=== PATIENT | female | born 1995 | race Caucasian/White ===

== ENCOUNTER 2024-04-24 05:21 | Outpatient (CLI) | payer OTHER, SELFPAY ==
[2024-04-24] VITALS (8 sets, daily range): BP systolic 128–146; BP diastolic 73–97; PULSE 76–121; RESP 16; TEMP 36.5; O2SAT 94–98; BMI 30.7
[2024-04-24 06:25] LABS: Color, Urine Yellow (Yellow); Glucose, Dipstick Normal (Normal); Ketone-Dipstick Negative (Negative); Leukocyte Esterase-Dipstick 25 /ul (Negative); Nitrite-Dipstick Negative (Negative); Occult Blood-Urine Negative /ul (Negative); Protein-Dipstick Negative (Negative); Urine Bilirubin Dipstick Negative (Negative); Urine Clarity Sl. Cloudy (Clear); Urine Urobilinogen Normal (Normal)
--- NOTE | 2024-04-24 14:52 | OB.TRI.NOTE ---
HPI - General General Date of Admission: 04/24/24 Date of Service: 04/24/24 Chief Complaint: abdominal pain and DFM HPI Narrative JUANA MOSS, is a 29 F who presents with abdominal pain and DFM. No vb, lof. PFSH PFSH Home Medications ?Medication ?Instructions ?Recorded ?Last Taken ?Type enoxaparin 40 mg/0.4 mL 40 mg subcut DAILY 04/24/24 04/23/24 History subcutaneous syringe (Lovenox) vit no.95-ferrous 1 tab PO DAILY 04/24/24 04/23/24 History fumarate 28 mg-folic acid 800 mcg tablet () Allergy/AdvReac Type Severity Reaction Status Date / Time No Known Allergies Allergy Verified 04/24/24 05:53 NST FHR Rate Baby A Baseline: 145 Variability:: Moderate Accelerations:: 15 x 15 Decelerations:: None NST Reactive:: Yes FHR Category:: Category I Uterine Activity:: none Assessment & Plan (1) Decreased movement: PLAN: NST reactive. D/c home. (2) 30 weeks gestation of :
== END 2024-04-24 07:10 | disposition home or self-care (01) ==
LOC: WPOUT 05:31 → WP 05:31
PROVIDERS: Referring Provider Obstetrics & Gynecology; Visit Provider Obstetrics & Gynecology
DX: O36.8130 Decreased fetal movements, third trimester, not applicable or unspecified (principal); Z3A.30 30 weeks gestation of pregnancy
CPT/HCPCS: 59025; 59050; 81002; 99221; G0378

== ENCOUNTER 2024-12-31 09:00 | Outpatient (RCR) | payer OTHER, SELFPAY ==
--- NOTE | 2024-08-27 15:22 | HP.PTEVAL ---
Patient's Visit Information Visit Information Visit Information: IZZY MOSS is a 29 year old F referred to Physical Therapy by CORA AGUILAR with a diagnosis of . Date of Evaluation: 08/25/24 Physical Therapist: Daxa Mike Visit Plan Frequency: 1x/Week Duration: 2 Months Plan: Continue 1 x week. She will be returning to work in 3 weeks so may need to space out visits once she returns to work. Add week 2 next visit. Continue manual therapy on pelvic floor to address tightness bilaterally and superiorly at urethral sphincter. Address left upslip and left lumbar pain. Subjective Subjective: She had her first baby 2024. She delivered at [facility]. [employer] was booking out into November for pelvic floor so she decided to seek care closer to home. Her baby was born at 39 weeks. Her water broke at 10pm. She had epidural. She had a professor of floriculture for delivery. She had a 1st degree tear. Stress incontinence. There has been some improvement. She had intercourse again at 6 weeks. Pain in the groin area during and after intercourse. When she goes to urinate, she feels like she can't control it. Groin pain is bilaterally. Pubic symphysis pain. Groin pain averages 5-6/10. She has to stop and change positions. No low back pain besides mild pain with caring for her baby with bending. She leaks with laughing. She wears a pad daily now. 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 She commutes to [employer] 3 days a week in [place]. She lives in [place]. Her goal is to improve incontinence. She is doing Yoga. Pain Lower pelvis bilaterally: Pain Intensity (Out of 10): 0 Pain Intensity Range: 6 Comment: She feels tighter with certain positions during intercourse. Objective Objective: LAYCOCK 3/2/4/4 Moderate Pelvic floor tightness - bilaterally and superiorly at urethral sphincter- moderate tenderness Diastasis 1/2 finger width , 1 at umbilicus Left upslip Left rotation L2-L5 moderate left lumbar , piriformis tightness and tenderness She had difficulty bearing down and lengthening pelvic floor on exam - difficult to evaluate for prolapse as a result Goals Goal 1:: Izzy will be able to cough or sneeze without leaking. Goal Time Frame: 6-8 Weeks Goal 2:: Izzy will be able to participate in intercourse without groin pain during or after. Goal Time Frame: 2-4 Weeks Goal 3:: Izzy will be able to laugh without leaking. Goal Time Frame: 6-8 Weeks Goal 4:: Izzy will not have to wear a pad for incontinence. Goal Time Frame: 6-8 Weeks Rehabilitation Potential Physical Therapy Diagnosis: Pelvic and perineal pain, Stress incontinence, Dyspareunia Rehabilitation Potential: Excellent Anticipated Interventions Patient/Client Instruction: Educate patient on: Condition and Plan of Care For the Purpose of:: To decrease pain Other: To lessen leaking , improve pain and resolve dyspareunia Manual Therapy Techniques to Include: Massage, Mobilization and Soft tissue mobilization For the Purpose of:: To decrease pain Text: Thank you for the opportunity to evaluate your patient. For Medicare and Medicare HMO plans, please review the plan of care and approve it. It will need to be FAXED BACK to us at [phone] for Medicare purposes. For Medicare only, by signing this I certify the plan of care. Please let me know if there are questions or concerns regarding this plan of care. Physician Signature: Date:
--- NOTE | 2024-12-31 10:06 | HP.PTDCSUM_ITS ---
Discharge Summary D/C summary: It has been my pleasure to treat IZZY MOSS referred by CORA AGUILAR, with the diagnosis of Other urinary incontinence for a total of 8 visit(s). Discharge Date: 12/31/24 Please see the following information for a summary of their discharge status. Subjective Subjective: Things are pretty good. She wants to hold off on internal work today. Very little urine leakage which she feels is 90% improved. She do esn't think about it now when she laughs or sneezes. Pain with intercourse is nearly gone but mainly right at the opening superficially 2/10. She is currently 6 months . Low back pain is better and hasn't really been bothering her as she isn't thinking about it as much. Maybe once a week she is leaking but only a drop or two and she doesn't have to wear a pad anymore. Groin pain has resolved. Pain Lower pelvis bilaterally: Pain Intensity (Out of 10): 3 Overall Improvement % Improvement: 90 Objective Objective/Function: She has done very well in PT and reports 90% improvement overall. She is ready for discharge. Goals Goal 1:: Izzy will be able to cough or sneeze without leaking. Goal Progress: 90% improved Goal 2:: Izzy will be able to participate in intercourse without groin pain during or after. Goal Progress: Goal Met Goal 3:: Izzy will be able to laugh without leaking. Goal Progress: 90% improved Goal 4:: Izzy will not have to wear a pad for incontinence. Goal Progress: Goal Met Plan Plan: D/C from PT. D/C Information Discharge Comments: She is doing well and reports 90% improvement overall. She plans to continue the exercises on her own at home. At this time, we are discharging her. d/c sentence: If there are questions or concerns regarding this patient's physical therapy, please feel free to call me at [phone]. Thank you for the referral of this patient. Sincerely, Daxa Mike Balance/Gait/Functional tests Improvement % Improvement: 90
== END 2024-12-31 10:58 | disposition home or self-care (01) ==
LOC: PT 09:00
DX: Z00.00 Encounter for general adult medical examination without abnormal findings (principal)
CPT/HCPCS: 97110; 97112; 97140; 97161; 97530